=== PATIENT | male | born 1960 | race Caucasian/White ===

== ENCOUNTER 2023-12-26 06:10 | Day surgery (SDC) | payer OTHER, SELFPAY ==
[2023-12-26] VITALS (13 sets, daily range): BP systolic 125–154; BP diastolic 72–84; PULSE 62–76; RESP 20–22; TEMP 36.3–37; O2SAT 88–97; BMI 36.9
[2023-12-26] MEDS: SODIUM CHLORIDE 0.9 % (FLUSH) 10 ML SYRINGE IVF (07:04)
[2023-12-26] MEDS: 0.9 % SODIUM CHLORIDE 500 ML 500 ML 50 ML IV (07:05)
--- NOTE | 2023-12-26 07:45 | W.PM.H&PU ---
History & Physical Update History & Physical Update H&P Reviewed and patient assessed: No changes noted
[2023-12-26] MEDS: CEFAZOLIN 2 GM INJ IVP (07:58)
[2023-12-26] MEDS: BUPIVACAINE 0.25% 30 ML INJECTION (08:14)
--- NOTE | 2023-12-26 09:10 | P.GSOP_ITS ---
Operative Note Date of procedure: 12/26/23 Pre-op diagnosis: Umbilical hernia Post-op diagnosis: 1. Umbilical hernia, 2 cm 2. Epigastric hernia, 5 mm Type of Procedure: Open repair of umbilical and epigastric hernia with placement of mesh Indications: Patient is a 63-year-old male who presented to clinic with a symptomatic umbilical hernia. Please see consultation note for full discussion regarding different treatment options. Risks and benefits of operative intervention were discussed at length with the patient. Risks included but was not limited to: Bleeding, infection, risk of damage to surrounding structures, risk of recurrent, possible need for additional procedures and postoperative complications such as pneumonia, pulmonary emboli or [place]. All questions and concerns were addressed with the patient agreeing to proceed. Procedure Description: After discussing the risks and benefits of the procedure, the patient signed informed consent.? The operative site was marked and the patient was brought to the operating room and placed on the operating table in supine position.? Care was taken to pad the patient's pressure points.?? The patient was then intubated by anesthesia.?? The operative site was then prepped and draped in the usual sterile fashion.? A time-out was then performed. A curvilinear incision was made at the umbilicus. Dissection was carried down into the subcutaneous tissue using cautery. The hernia sac was encountered. Dissection was taken down to the fascia, and the umbilical stock was carefully dissected off of the hernia sac. A small tear in the hernia sac did occurred during the dissection. Evidence of incarcerated omentum, no small bowel. Once the hernia sac was dissected out circumferentially, it was reduced. The fascial edges were then cleared circumferentially. The umbilical hernia was 2 cm in size. An additional epigastric hernia was also identified 1 cm superior and measured 5 mm in size. The decision was made to use a piece of mesh to cover both defects. A preperitoneal pocket was created using a combination of blunt dissection and cautery. Hemostasis appeared adequate. Once the posterior fascia was clear, a piece of 3 x [address] hernia mesh was placed in the preperitoneal space with care to ensure that it laid flat and had adequate coverage of both defects. This was secured into place using 2 0 PDS interrupted sutures. The tails were then trimmed and the epigastric fascial opening was closed with a [id number] stitch of 0 Vicryl. The umbilical hernia was closed with a running 0 Vicryl. Local anesthetic was injected into the fascia, skin and subcutaneous tissues. A small amount of redundant skin was excised and passed off for disposal. The umbilicus was reapproximated to the fascia. The skin was then closed with running absorbable suture. A sterile dressing was then applied. ? The patient was then woken and transported to the recovery area in stable condition. ? The patient tolerated the procedure well. Findings: Umbilical hernia and epigastric hernia, both repaired with placement of mesh. Anesthesia: [facility] Surgeon: Najma Montgomery MD Estimated blood loss (mL): 10 Condition: stable Disposition: PACU
--- NOTE | 2023-12-26 09:33 | W.ANESCHARGE ---
Anesthesia Charges Start Date/Time Anesthesia Start Date: 12/26/23 Anesthesia Start Time: 07:42 Stop Date/Time Anesthesia Stop Date: 12/26/23 Anesthesia Stop Time: 09:24
[2023-12-26] MEDS: fentaNYL 100 MCG/2 ML inj 50 MCG IVP ×2 (09:36→09:45)
[2023-12-26] MEDS: KETOROLAC 15 MG/ML inj IVP (09:38)
--- NOTE | 2023-12-26 09:39 | W.ANESCHARGE ---
Anesthesia Charges Start Date/Time Anesthesia Start Date: 12/26/23 Anesthesia Start Time: 07:42 Stop Date/Time Anesthesia Stop Date: 12/26/23 Anesthesia Stop Time: 09:24
[2023-12-26] MEDS: HYDROCODONE-ACETAMIN 5-325 MG 1 TAB PO ×2 (10:23→11:18)
[2023-12-26] MEDS: INSULIN REGULAR, HUMAN 100 UNIT/ML VIAL 6 UNIT SUBCUT (10:44)
== END 2023-12-26 11:20 | disposition home or self-care (01) ==
PROVIDERS: PCP Family Medicine; Visit Provider Surgery
PROC: (CPT 49593; principal; 2023-12-26 07:30)
DX: K42.9 Umbilical hernia without obstruction or gangrene (principal); K43.9 Ventral hernia without obstruction or gangrene; E11.9 Type 2 diabetes mellitus without complications; I10 Essential (primary) hypertension
CPT/HCPCS: 49593; 00830; 82962; A4467; A9270; C1781; J0330; J0665; J0690; J1100; J1815; J1885; J2250; J2405; J2704; J3010; J3490; J7030

== ENCOUNTER 2024-06-14 09:00 | Outpatient (RCR) | payer OTHER, SELFPAY | END 2024-10-12 23:59 | disposition home or self-care (01) | PROVIDERS: PCP Family Medicine; Visit Provider Surgery | DX: M62.08 Separation of muscle (nontraumatic), other site (principal); Z51.89 Encounter for other specified aftercare | CPT/HCPCS: 97110; 97162; 97535 ==